=== PATIENT | female | born 1980 ===

== ENCOUNTER 2023-04-01 06:26 | Inpatient (IN) | payer OTHER ==
[2023-04-01] VITALS (64 sets, daily range): BP systolic 117–159; BP diastolic 61–98; PULSE 69–96; TEMP 97.7–98.4
[~2023-04-01] VITALS: Ht 170.2 cm; Wt 92.3 kg
[~2023-04-01 06:26] MED LIST: NEURONTIN800 MG/TAB PO; ZOFRAN ODT4 MG PO
--- NOTE | 2023-04-01 07:00 | NUR ---
TOCO NOT ON UNTIL 814. RN AT BEDSIDE. PT DENIED FEELING CONTRACTIONS.
[2023-04-01 07:21] LABS: BASO % 0.2 % (0.0-2.0); EOS # 0.1 K/mm3 (0.0-0.7); EOS % 0.6 % (0.0-4.0); GRAN # 7.1 K/mm3 (1.4-6.5); GRAN % 69.4 % (42.2-75.2); HEMOGLOBIN 11.6 g/dl (12.5-16.0); LYMPH # 2.5 K/mm3 (1.2-3.4); LYMPH % 24.4 % (20.0-51.0); MEAN CELL VOLUME 96 fl (80.0-100.0); MEAN CORPUSCULAR HEMOGLOBIN 33 pg (27-31); MEAN CORPUSCULAR HGB CONC 34 g/dl (33.0-37.0); MEAN PLATELET VOLUME 10.8 fl (7.4-10.4); MONO # 0.5 K/mm3 (0.1-0.6); PLATELET COUNT 209 K/mm3 (130-400); RED BLOOD COUNT 3.52 M/mm3 (4.10-5.30); REDCELL DISTRIBUTION WIDTH-CV 13.2 % (11.5-14.5)
[2023-04-01 07:22] LABS: HEMATOCRIT 33.8 % (37.0-47.0)
[2023-04-01] MEDS ORDERED: PRENATAL TABLET PO (07:34)
--- NOTE | 2023-04-01 08:38 | NUR ---
0630- PT TO ROOM, CHANGED INTO GOWN. OREINTED TO ROOM. MONITORS APPLIED, CATAGORY 1 TRACING AND VITALS TAKEN. WNL. NO CONTRACTIONS TODAY, STATED SHE HAD A FEW YESTERDAY. NO LEAKING OF FLUID OR BLEEDING. REGULAR MOVEMENTS. IV STARTED, LABS DRAWN AND SENT TO LAB. FLUIDS AND ANTIBIOTICS BEGAN PER PROTICAL.
--- NOTE | 2023-04-01 09:15 | NUR ---
DIFFICULTY TRACING HEART TONES DUE TO MATERNAL POSITTION. THIS RN AT BEDSIDE MONITORING.
--- NOTE | 2023-04-01 11:40 | NUR ---
DR PALACIOS HERE IN HOUSE TO SEE PT. SVE 3. ATTEMPTED TO AROM @ 1159. UNSURE IF AROM WAS SUCCESSFUL. 1231 PT BEGAN FEELING GUSHES OF FLUID. FLUID WAS CLEAR.
--- NOTE | 2023-04-01 16:00 | NUR ---
DIFFICULTY TRACING HEART TONES DUE TO MATERNAL POSITTION AND ANATOMY. MOM DECIDED THAT SHE WANTED TO GO TO THE BATHROOM AFTER WE HAD TRIED SEVERAL TIMES TO TRACE BABY UNSUCCESSFULLY. SHE SPENT ABOUT 15 MIN IN THE BATHROOM. THEN SPENT AND ADDITIONAL 15 MINUTES TRYING TO GET BABYS HEART TONES TO TRACE. THIS RN AT BEDSIDE LISTENING TO FHT'S EXCEPT WHILE IN THE RESTROOM.
--- NOTE | 2023-04-01 17:00 | NUR ---
DISSCUSSED FSE WITH PT DUE TO DIFFICULTY TRACING FHT'S. PT AND FOB AGREED THAT IT WOULD BE BETTER TO BE ABLE TO TRACE BABY AND ALLOW MOM TO MOVE INTO BETTER POSTITIONS.
--- NOTE | 2023-04-01 18:17 | NUR ---
DIFFICULTY TRACING FHT'S DUE TO PT POSITION AND ANATOMY. THIS RN AT BEDSIDE WITH PT ATTEMPTING TO KEEP BABY ON THE MONITOR.
--- NOTE | 2023-04-01 19:40 | NUR ---
Dr. Biggs notified of pt request for some Zofran. Pt reports to this RN that when she gets the scheduled antibiotic, she feels some nausea shortly after it begins infusing. Phone order for Zofran 4 mg IV every 6 hours PRN for nausea/vomiting received.
--- NOTE | 2023-04-01 21:45 | NUR ---
Late decels noted on FHT tracing, pt turned to her left side to attempt to resolve the decel. FHT recovers quickly and pt reports she is somewhat comfortable at this time. FHT tracing also notes a variable decel with good recovery. Pt remains on her left side.
[2023-04-02] VITALS (41 sets, daily range): BP systolic 83–156; BP diastolic 45–83; PULSE 72–97; TEMP 97.7–98.2
--- NOTE | 2023-04-02 01:15 | NUR ---
RN at bedside monitoring pt blood pressure. Pt sleeping very well, on her right side, pain well controlled by her epidural. Ephedrine at bedside for RN to administer per EMAR order.
--- NOTE | 2023-04-02 01:30 | NUR ---
Pt woke up to assess due to low blood pressure. Pt reports feeling well, just a little sleepy and tired. Ephedrine drawn up and prepared to be given to pt for low blood pressure. Pt was sleeping on her right side completely supine but very comfortable.
--- NOTE | 2023-04-02 01:45 | NUR ---
Pt given first dose of ephedrine as ordered on EMAR and repositioned to semi-fowlers position. Pt reports feeling good, denies any lightheadedness or nausea. Pt also reports pain is well controlled with her epidural. RN remains at bedside monitoring pt blood pressure and status.
--- NOTE | 2023-04-02 02:00 | NUR ---
Pt given a second dose of ephedrine as ordered per EMAR and documented. Pt repositioned to [facility] with legs frogged at pt request. Pt reports still feeling comfortable and doing well at this time. FHT with good variability and accels.
--- NOTE | 2023-04-02 02:15 | NUR ---
Pt remains in goran, RN at bedside monitoring pt and status. Pt doing well and denies any needs.
--- NOTE | 2023-04-02 02:30 | NUR ---
Pt remains in goran, tells RN she is comfortable like this and prefers to be in this position. Pt blood pressure back to baseline.
--- NOTE | 2023-04-02 03:00 | NUR ---
Pt in [facility] with legs frogged to allow fetus to descend with the contractions. Pt remains comfortable with epidural with spouse and friend at bedside for support.
--- NOTE | 2023-04-02 03:30 | NUR ---
Pt repositioned into semi-fowlers and RN educates pt on pushing and where to focus her pushing. Pt verbalizes understanding. Spouse and other support person at bedside to support pt during pushing. RN able to palpate contractions to help pt know when to breathe and begin pushing with contractions. 0322-Pushing begins with pt; spouse and other support person at bedside to hold pt's legs, RN instructing pt when to push and for how long.
--- NOTE | 2023-04-02 03:45 | NUR ---
Pt continues to push with contractions, pushes well and with good stamina. Fetus tolerating pushing well, accels observed and good variability.
--- NOTE | 2023-04-02 05:15 | NUR ---
Pt reporting increased back pain with the contractions and she tells RN that she feels herself tensing up and unable to relax. Pt repositioned to her left side with her right leg placed into the stirrup to try and relieve some of the pressure and discomfort in her back. Early decels noted on the heart tones during pt pushing. FHT with good recovery after pt is done pushing. RN remains at bedside.
--- NOTE | 2023-04-02 05:30 | NUR ---
0515-Dr Biggs at bedside to assess pt and status. 0517-Pt repositioned to semi-fowlers so Dr Biggs can examine pt. Dr. Biggs informs pt that he would like to see how fetus descends when pt is pushing and see how pt does. Pt tells Dr Biggs that she is having increased back pain, her muscles are tense and it is more uncomfortable to push with the pain. 0520-Dr Biggs discusses with pt the options of assisting the pt with delivery due to her increased back pain, that he would use either a vacuum or forceps to assist in delivery of the fetus. Pt and spouse informed on how the vacuum are used and how the forceps are used. Opportunity for questions given and questions answered. 0525-Pt prepared for delivery.
--- NOTE | 2023-04-02 05:45 | NUR ---
0530-Dr Biggs prepares for delivery, instrument table at bedside with both a vacuum and forceps available for Dr Biggs. Bed broken down and pt feet placed on the foot plates. 0531-FSE disconnected and removed by Dr Biggs, US in place for monitoring. Spouse at pt side for support. 0538-Dr Biggs requests to use forceps to assist in delivery. Forceps in place at this time by Dr Biggs. RN at bedside assessing for contractions so pt can begin pushing. 0540-Pt reports she feels a contraction starting, RN can palpate it and pt instructed to push. Dr Biggs pulls on the forceps as pt pushes 4 times with this contraction. 0543-Dr Biggs informs pt that the fetus is not descending as he would like, he tells the pt that she is pushing very well and with very good effort but for some reason the fetus is just not descending down the pelvis. He would prefer to not cause any injury to the fetus by continuing to attempt to use the forceps and that he recommends delivering by section.
--- NOTE | 2023-04-02 06:00 | NUR ---
0545-Pt prepared for surgery, spouse given attire for surgery as well. Perineum clipped, abdomen washed and garber placed. 0553-Pt taken to OR suite at this time by this RN and another RN, accompanied by spouse.
--- NOTE | 2023-04-02 06:15 | NUR ---
this rn gets report from ricci smith RN in OR.
[2023-04-03 02:15] VITALS: BP 130/73; PULSE 72; TEMP 98
[2023-04-03 07:00] VITALS: BP 130/77; PULSE 91; TEMP 97.9
[2023-04-03 07:22] LABS: HEMATOCRIT 25.4 % (37.0-47.0); HEMOGLOBIN 8.5 g/dl (12.5-16.0)
--- NOTE | 2023-04-03 07:23 | NUR ---
Oxycodone 5 mg given per request and as ordered. 0728 Mylicon 160 mg given per request and as ordered.
[2023-04-03] MEDS ORDERED: IBU600 MG PO (08:21)
[2023-04-03] MEDS ORDERED: ROXICODONE 55 MG/TAB PO (08:22)
[2023-04-03] MEDS ORDERED: TYLENOL 500MG500 MG PO (08:22)
[2023-04-03] MEDS ORDERED: IRON TABLETS325 MG PO (08:23)
--- NOTE | 2023-04-03 09:58 | NUR ---
Initial visit; Patient thanked Unit Assistant for offering congratulations and God's blessings for the of their daughter. Unit Assistant thanked family for choosing our hospital.
[2023-04-03 16:32] VITALS: BP 134/78; PULSE 82; TEMP 97.4
[2023-04-03 20:50] VITALS: BP 138/70; PULSE 75; TEMP 97.8
[2023-04-04 07:10] VITALS: BP 131/81; PULSE 74; TEMP 97.1
--- NOTE | 2023-04-04 13:05 | NUR ---
ALL DC INSTRUCTIONS AND FOLLOW UP APPOINTMENTS, WELL MEDICATION SCHEDULE REVIEWED IN DEPTH. PT AGREEABLE TO ALL DC PLANNING. ALL BELONGINGS ACCOUNTED FOR. LOCHIA REMAINS SCANT. INCISION CDI, NO REDNESS. PAIN MEDS ADMINISTERED PRIOR TO DC. PT AMBULATORY FROM UNIT IN STABLE CONDITION.
== END 2023-04-04 13:05 | disposition home or self-care (01) | DRG 787 ==
LOC: OB 06:26 → LDR 06:26 → OB 12:52
PROVIDERS: ADMIT Obstetrics & Gynecology
PROC: 10D00Z1 Extraction of Products of Conception, Low, Open Approach (ICD-10-PCS; principal; 2023-04-01)
DX: O99.824 Streptococcus B carrier state complicating childbirth (principal); D62 Acute posthemorrhagic anemia; Z3A.39 39 weeks gestation of pregnancy; Z37.0 Single live birth; O99.284 Endocrine, nutritional and metabolic diseases complicating childbirth; E28.2 Polycystic ovarian syndrome; O99.344 Other mental disorders complicating childbirth; M79.7 Fibromyalgia; O09.523 Supervision of elderly multigravida, third trimester; O99.02 Anemia complicating childbirth; O43.123 Velamentous insertion of umbilical cord, third trimester
CPT/HCPCS: J0690; J1100; J1885; J2250; J2270; J2405; J2540; J2590; J2795; J3010; J7120